=== PATIENT | female | born 1950 | race Caucasian/White ===

== ENCOUNTER 2019-07-15 16:25 | Outpatient (CLI) | payer MEDICARE, SELFPAY ==
--- NOTE | 2019-07-15 | USCV_ITS ---
Caitlin Knutson Age: 69 Gender: F : 1950 Exam Date: 07/15/2019 16:57 Ordering Phys: Michael Nuñez MD Technologist: Mary Beth Bustillo [place] [facility] [place]: PAIN LT FOOT AND LEG HISTORY: Pain in Lt foot PROCEDURES: The venous duplex Doppler examination of both lower extremities was performed in the standard fashion. The following venous structures were evaluated: common femoral vein, profunda vein, proximal portion of the greater saphenous vein, superficial femoral vein, and the popliteal vein. In addition, the posterior tibial and peroneal trunk were evaluated. Serial compression, augmentation maneuvers, and spectral Doppler flow evaluation were performed. FINDINGS: No DVT seen in any vessel examined The veins were found to be easily compressible with spontaneous blood flow. Non pulsatile flow pattern. CONCLUSIONS No evidence of DVT in the above-mentioned identifiable veins. Dr Sin Joseph MD FAC (Electronically Signed) Final Date: 16 July 2019 20:18 S
== END 2019-07-15 16:26 | disposition home or self-care (01) ==
LOC: RAD 16:30
PROVIDERS: Family Provider Family Medicine; PCP Family Medicine; Visit Provider Family Medicine
DX: M79.605 Pain in left leg (principal)
CPT/HCPCS: 93970

== ENCOUNTER 2019-07-19 15:33 | Outpatient (CLI) | payer MEDICARE, SELFPAY ==
--- NOTE | 2019-07-19 | US_ITS ---
WS: [id number] US soft tissue/extremity [id number] REASON FOR EXAM: LYMPHADENOPATHY FINDINGS: The left axilla was evaluated with real-time imaging. No definite masses are seen normal va scular channels are noted no unusual densities are seen. US/US soft tissue/extremity [id number] IMPRESSION: Negative left axilla with no masses identified.
--- NOTE | 2019-07-19 | USCV_ITS ---
Caitlin Knutson Age: 69 Gender: F : 1950 Exam Date: 07/19/2019 15:59 Ordering Phys: Humera Veliz Technologist: Exam Location: [facility] [place] Indication: LT LEG PAIN RIGHT LEFT Brachial 145.00 mmHg Brachial 149.00 mmHg Pressure (mmHg) Waveform Pressure (mmHg) Waveform 209.00 Above Knee 149.00 199.00 Below Knee 180.00 154.00 HEADING REPAIRER 204.00 180.00 DPA 187.00 1.30 Ankle/Brachial Index 1.26 116.00 Pre-Exercise Toe Pressure 108.00 0.78 Pre-Exercise Toe/Brachial Index 0.72 FINDINGS Normal LIZABETH and TBI's bilaterally PVR waveforms showing some blunting of the dicrotic notch Elevated segmental pressures bilaterally CONCLUSIONS No significant arterial obstruction, based on the above findings. Dr Sin Joseph MD FACC (Electronically Signed) Final Date: 20 July 2019 20:34 S
== END 2019-07-19 15:34 | disposition home or self-care (01) ==
LOC: US 15:40
PROVIDERS: Family Provider Family Medicine; PCP Family Medicine; Visit Provider Family Medicine
DX: M79.605 Pain in left leg (principal); R59.1 Generalized enlarged lymph nodes
CPT/HCPCS: 76882; 93923

== ENCOUNTER 2021-02-18 14:02 | Outpatient (CLI) | payer MEDICARE, SELFPAY ==
--- NOTE | 2021-02-18 14:06 | XR_ITS ---
WS: [id number] Bone mineral density performed on a [employer], 02/18/2021 Clinical data: OSTEOPOROSIS Comparison study: DEXA scan, 02/08/2019. Findings: The first 4 lumbar vertebral bodies demonstrated the bone mineral density of 0.891 g/cm2 for a young adult T score of -2.4. The bone mineral density of the lumbar spine has diminished slightly compared to the prior scan. Measurement of the left hip reveals a bone mineral density of 0.804 g/cm2 with a young adult T score of -1.6. Measurement of the right hip reveals the bone mineral density of 0.747 g/cm2 for young adult T score of -2.1. The bone mineral density of both hips has diminished slightly compared to the prior scan. XR/XR DEXA axial skeleton* [id number] Impression: Osteopenia of the lumbar spine and both hips.
== END 2021-02-18 14:03 | disposition home or self-care (01) ==
PROVIDERS: PCP Family Medicine; Visit Provider Family Medicine
DX: Z78.0 Asymptomatic menopausal state (principal); M81.0 Age-related osteoporosis without current pathological fracture
CPT/HCPCS: 77080

== ENCOUNTER → 2021-10-18 11:46 | Outpatient (BNVA) | payer MEDICARE, SELFPAY | PROVIDERS: PCP Family Medicine; Visit Provider Family Medicine | DX: Z00.00 Encounter for general adult medical examination without abnormal findings (principal); E04.1 Nontoxic single thyroid nodule | CPT/HCPCS: 80053; 80061; 84439; 84443; 84481; 85025 ==

== ENCOUNTER 2022-03-27 07:52 | Outpatient (CLI) | payer MEDICARE, SELFPAY ==
--- NOTE | 2022-03-27 08:02 | MM_ITS ---
WS: [id number] SCREENING DIGITAL TOMOSYNTHESIS MAMMOGRAM WITH CAD HISTORY: SCREENING COMPARISON: 03/19/2021, 03/13/2020 and 02/08/2019 Bilateral CC and MLO with tomosynthesis views submitted. Synthetic mammography reviewed. Computer aid ed detection analyzed. Breast composition: There are scattered areas of fibroglandular density. No suspicious masses, microc alcifications or architectural distortion. Stable nodules upper outer quadrant RIGHT breast. MM/[place] [id number] IMPRESSION: BI-RADS: 2-Benign FOLLOW UP: 1 Year Follow-up
== END 2022-03-27 07:53 | disposition home or self-care (01) ==
LOC: RAD 07:54
PROVIDERS: PCP Family Medicine; Visit Provider Family Medicine
DX: Z12.31 Encounter for screening mammogram for malignant neoplasm of breast (principal)
CPT/HCPCS: 77063; 77067

== ENCOUNTER → 2022-09-09 08:40 | Outpatient (BNVA) | payer MEDICARE, SELFPAY | PROVIDERS: PCP Family Medicine; Visit Provider Family Medicine | DX: Z00.00 Encounter for general adult medical examination without abnormal findings (principal); Z13.220 Encounter for screening for lipoid disorders; E04.1 Nontoxic single thyroid nodule | CPT/HCPCS: 80053; 84443; 85025 ==

== ENCOUNTER 2023-03-30 09:00 | Outpatient (CLI) | payer MEDICARE, SELFPAY ==
--- NOTE | 2023-03-30 09:09 | MM_ITS ---
WS: [id number] BILATERAL SCREENING DIGITAL TOMOSYNTHESIS MAMMOGRAM WITH CAD HISTORY: SCREENING COMPARISON: 03/27/2022 and 03/19/2021 Bilateral CC and MLO views with tomosynthesis and synthetic mammography submitted. Computer aided det ection analyzed. Breast composition: There are scattered areas of fibroglandular density. No suspicious masses, microc alcifications or architectural distortion. Lymph node upper outer quadrant RIGHT breast is stable. No suspicious masses or calcifications. IMPRESSION: MM/[place] [id number] BI-RADS: 2-Benign FOLLOW UP: 1 Year Follow-up
== END 2023-03-30 09:01 | disposition home or self-care (01) ==
LOC: RAD 09:00
PROVIDERS: PCP Family Medicine; Visit Provider Family Medicine
DX: Z12.31 Encounter for screening mammogram for malignant neoplasm of breast (principal)
CPT/HCPCS: 77063; 77067

== ENCOUNTER → 2023-08-28 08:06 | Outpatient (BNVA) | payer MEDICARE, SELFPAY | PROVIDERS: PCP Family Medicine; Visit Provider Family Medicine | DX: N18.9 Chronic kidney disease, unspecified (principal); M19.012 Primary osteoarthritis, left shoulder; L57.0 Actinic keratosis; I83.90 Asymptomatic varicose veins of unspecified lower extremity; Z00.00 Encounter for general adult medical examination without abnormal findings; I10 Essential (primary) hypertension | CPT/HCPCS: 80053; 80061; 84443; 85025 ==

== ENCOUNTER 2023-09-14 07:56 | Outpatient (CLI) | payer MEDICARE, SELFPAY ==
--- NOTE | 2023-09-14 07:59 | XR_ITS ---
WS: [id number] RIGHT FOOT: 3 VIEW(S) TECHNIQUE: AP, oblique and lateral. HISTORY: pain in right foot COMPARISON: None available. Acute nondisplaced and partially healed fracture involving the proximal phalanx fourth toe. No intra- articular extension. Normal tarsometatarsal alignment. There is narrowing from osteoarthritis. No soft tissue abnormality or bone destruction. IMPRESSION: 1. Nondisplaced oblique fracture with partial healing proximal phalanx fourth toe. 2. 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
--- NOTE | 2023-09-14 13:30 | XR_ITS ---
WS: [id number] DEXA (DUAL ENERGY X-RAY ABSORPTIOMETRY) Bone mineral density was performed using a Genterpret machine. HISTORY: screening COMPARISON: 02/18/2021 Lumbar spine BMD (L1-L4): 0.947 g/cm2 T score: -1.9 Z score: -0.6 Total hip BMD: Left: 0.806 g/cm2. T score: -1.6 Z score: -0.3 Right: 0.721 g/cm2. T score: -2.3 Z score: -1.0 10 year probability of a major osteoporotic fracture is 13.9%. Compared to the prior study from 02/18/2021. Lumbar spine bone mineral density has increased by 6.3%. Bilateral hips bone mineral density has decreased by 1.7%. IMPRESSION: OSTEOPENIA based upon the WHO classification for females. Significant increase in bone mineral density within the lumbar spine. No significant change of bone m ineral density in the hips.
== END 2023-09-14 07:57 | disposition home or self-care (01) ==
LOC: RAD 07:56
PROVIDERS: PCP Family Medicine; Visit Provider Family Medicine
DX: Z13.820 Encounter for screening for osteoporosis (principal); M85.80 Other specified disorders of bone density and structure, unspecified site; Z78.0 Asymptomatic menopausal state; M79.671 Pain in right foot; M85.88 Other specified disorders of bone density and structure, other site; S92.514D Nondisplaced fracture of proximal phalanx of right lesser toe(s), subsequent encounter for fracture with routine healing; X58.XXXD Exposure to other specified factors, subsequent encounter; M19.071 Primary osteoarthritis, right ankle and foot
CPT/HCPCS: 73630; 77080

== ENCOUNTER 2024-02-09 09:59 | Outpatient (CLI) | payer MEDICARE, SELFPAY ==
--- NOTE | 2024-02-09 10:09 | XRR_ITS ---
PROCEDURE INFORMATION: Exam: XR Left Ankle Exam date and time: 02/09/2024 10:17 AM Age: 73 years old Clinical indication: Injury or trauma; Fall; Blunt trauma; Ankle; Left; Injury date: 02/08/24; Additional info: Ankle pain TECHNIQUE: Imaging protocol: Radiologic exam of the left ankle. Views: 1 or 2 views. COMPARISON: US soft tissue/extremity [id number] 07/19/2019 4:30 PM FINDINGS: Bones/joints: Lucency through the tip of the fibula suspicious for a nondisplaced no fracture or dislocation is otherwise appreciated. Joint spaces are relatively well preserved. Bony mineralization is normal. Soft tissues: There is surrounding soft tissue swelling greater laterally than medially. fracture. XR/XR ankle LT 2V [id number] IMPRESSION: 1. Suspect nondisplaced fracture involving the distal fibula. 2. Soft tissue swelling.
== END 2024-02-09 10:00 | disposition home or self-care (01) ==
PROVIDERS: PCP Family Medicine; Visit Provider Family Medicine
DX: R93.7 Abnormal findings on diagnostic imaging of other parts of musculoskeletal system (principal); M25.472 Effusion, left ankle
CPT/HCPCS: 73600

== ENCOUNTER 2024-03-10 09:04 | Outpatient (CLI) | payer MEDICARE, SELFPAY ==
--- NOTE | 2024-03-10 09:10 | XR_ITS ---
WS: [email or web address] Exam: XR ankle LT 2V [id number] Date/Time of Exam: 03/10/2024 9:14 AM Reason For Exam: f/u on fracture Comparison 02/09/2024. Healing nondisplaced fracture of the distal fibula. No other fractures are identified. There is still moderate soft tissue swelling about the ankle that shows improvement. The ankle mortise is maintaine d. XR/XR ankle LT 2V [id number] IMPRESSION: 1. Healing nondisplaced distal fibular fracture. Improved soft tissue swelling.
--- NOTE | 2024-03-10 09:10 | XR_ITS ---
WS: [email or web address] Exam: XR chest 2V* [id number] Date/Time of Exam: 03/10/2024 9:14 AM Reason For Exam: cough No priors. The lungs are clear and fully expanded. Normal cardiomediastinal silhouette. Bony structures are inta ct. Exaggerated thoracic kyphosis. Degenerative change and mild thoracic dextroscoliosis. XR/XR chest 2V* [id number] IMPRESSION: 1. No acute cardiopulmonary finding.
== END 2024-03-10 09:05 | disposition home or self-care (01) ==
LOC: RAD 09:06
PROVIDERS: PCP Family Medicine; Visit Provider Family Medicine
DX: R05.9 Cough, unspecified (principal); M40.204 Unspecified kyphosis, thoracic region; S82.65XD Nondisplaced fracture of lateral malleolus of left fibula, subsequent encounter for closed fracture with routine healing; X58.XXXA Exposure to other specified factors, initial encounter
CPT/HCPCS: 71046; 73600

== ENCOUNTER 2024-04-01 07:13 | Outpatient (CLI) | payer MEDICARE, SELFPAY ==
--- NOTE | 2024-04-01 07:22 | MM_ITS ---
WS: [email or web address] Bilateral screening 3D tomosynthesis digital mammogram, 04/01/2024 7:22 AM Clinical Data: screening Comparison: 03/30/2023, 03/27/2022, 03/19/2021, 03/13/2020 02/08/2019, 02/03/2018, 02/02/2017, 02/01/2016, 12/09/2013, 12/08/2012. Findings: No spiculated masses or clustered calcifications are seen. There are no secondary signs of carcinoma . MM/MM scr tomosynthesis [id number] Impression: Negative bilateral mammogram unchanged. Recommend annual screening mammograms. BIRADS: 1 - Negative. FOLLOW UP: 1 Year Follow-up DENSITY: There are scattered areas of fibroglandular density. The CAD order checker packer processer was used
== END 2024-04-01 07:14 | disposition home or self-care (01) ==
LOC: RAD 07:14
PROVIDERS: PCP Family Medicine; Visit Provider Family Medicine
DX: Z12.31 Encounter for screening mammogram for malignant neoplasm of breast (principal)
CPT/HCPCS: 77063; 77067

== ENCOUNTER → 2024-07-26 08:01 | Outpatient (BNVA) | payer MEDICARE, SELFPAY | PROVIDERS: PCP Family Medicine; Visit Provider Podiatrist Foot & Ankle Surgery | DX: L84 Corns and callosities (principal); M25.372 Other instability, left ankle | CPT/HCPCS: 99203 ==

== ENCOUNTER → 2024-08-24 07:42 | Outpatient (BNVA) | payer MEDICARE, SELFPAY | PROVIDERS: PCP Family Medicine; Visit Provider Family Medicine | DX: E04.1 Nontoxic single thyroid nodule (principal); Z00.00 Encounter for general adult medical examination without abnormal findings; Z13.6 Encounter for screening for cardiovascular disorders | CPT/HCPCS: 80053; 80061; 84443; 85025 ==

== ENCOUNTER → 2025-03-16 09:20 | Outpatient (BNVA) | payer MEDICARE, SELFPAY | PROVIDERS: PCP Family Medicine; Visit Provider Podiatrist Foot & Ankle Surgery | DX: L84 Corns and callosities (principal); M25.372 Other instability, left ankle | CPT/HCPCS: 99213 ==

== ENCOUNTER 2025-04-03 07:59 | Outpatient (CLI) | payer MEDICARE, SELFPAY ==
--- NOTE | 2025-04-03 08:10 | MM_ITS ---
WS: [id number] BILATERAL SCREENING DIGITAL TOMOSYNTHESIS MAMMOGRAM WITH CAD HISTORY: ANNUAL SCREEN COMPARISON: 03/30/2023, 03/13/2020 and 02/08/2019 Bilateral CC and MLO views with tomosynthesis and synthetic mammography submitted. Computer aided detection analyzed. Breast composition: There are scattered areas of fibroglandular density. No suspicious masses, microcalcifications or architectural distortion. Asymmetries in the RIGHT breast are stable since at least 2019. No suspicious masses or calcifications. MM/MM scr tomosynthesis [id number] IMPRESSION: BI-RADS: 2 - Benign. FOLLOW UP: 1 Year Follow-up
== END 2025-04-03 08:00 | disposition home or self-care (01) ==
LOC: RAD 08:00
PROVIDERS: PCP Family Medicine; Visit Provider Family Medicine
DX: Z12.31 Encounter for screening mammogram for malignant neoplasm of breast (principal); R92.323 Mammographic fibroglandular density, bilateral breasts; N64.89 Other specified disorders of breast
CPT/HCPCS: 77063; 77067